=== PATIENT | male | born 1975 | race Caucasian/White ===

== ENCOUNTER → 2019-03-06 | Outpatient (CLI) | payer BC ==
--- NOTE | 2019-03-06 10:00 | MR ---
EXAMINATION TYPE: MR knee RT wo con DATE OF EXAM: 03/06/2019 COMPARISON: None HISTORY: Derangement of rt knee TECHNIQUE: Multiplanar, multisequence imaging of the right knee is performed without IV contrast. FINDINGS: There is complete disruption of the anterior cruciate ligament. Posterior cruciate ligament intact. T here is diffuse marrow edema involving the central and lateral aspect of the proximal tibia and later al femoral condyle compatible with bone contusion. There is normal appearance to the lateral collateral ligament. There is abnormal signal seen within the proximal mid aspect of the medial collateral ligament compat ible with near through thickness complete tear. Small amount of fluid is seen in the suprapatellar bursa. There is presence of a fluid fluid level in the bursa which may represent a component lipohemarthrosis. Cortical irregularity involving the late ral tibial plateau could represent an occult fracture. Patellar and quadriceps tendons intact. Patellar cartilage maintained. Intrasubstance signal seen in the posterior horn the medial meniscus most typical of myxoid degenerat ion IMPRESSION: 1. Complete ACL tear. 2. Near complete MCL tear 3. Diffuse marrow edema involving the proximal tibia and lateral femoral condyle with findings sugges tive of a small lipohemarthrosis involving the suprapatellar bursa. This could be associated with ACL tear. Occasional tiny avulsed fragment can be associated with such findings. 4. There is slight irregularity involving the posterior lateral surface of the tibial plateau. Findin gs suspicious for a macrotrabecular fracture.
== END | disposition home or self-care (01) ==
LOC: RADMRIMAIN 07:33
PROVIDERS: ATTEND Family Medicine
DX: S83.511A Sprain of anterior cruciate ligament of right knee, initial encounter (principal); S83.411A Sprain of medial collateral ligament of right knee, initial encounter; R93.6 Abnormal findings on diagnostic imaging of limbs